=== PATIENT | female | born 1990 | race African-American/Black ===

== ENCOUNTER 2020-08-04 20:27 | Emergency (ER) | payer SELFPAY ==
[~2020-08-04] VITALS: Ht 154.9 cm; Wt 84.0 kg
[~2020-08-04 20:27] MED LIST: HYDR-3164 PO; PRED50TA PO
[2020-08-04] MEDS ORDERED: SULF1TAB24 PO (21:22)
--- NOTE | 2020-08-04 21:22 | PHYS DOC ---
Past Medical History Past Medical History: Glaucoma Additional Past Medical Histor: genital herpes Past Surgical History: Cholecystectomy Additional Past Surgical Histo: R Ovarian cyst removal. Smoking Status: Never Smoker Alcohol Use: None Drug Use: None General Adult EDM: Chief Complaint: INSECT BITE HPI: HPI: Patient is a 30 year old female who presents with right cheekbone quarter sized tender read slightly elevated, hard abscess x 2 days. Denies drainage, fever, dizziness, headache, nausea, vomiting, chills, abdominal pain. Rates her pain a 8/10 and more so with palpation. Past medical history cholecystectomy and genital herpes. Takes no medications daily. Review of Systems: Review of Systems: Constitutional: Denies fever or chills. [] Eyes: Denies change in visual acuity. [] HENT: Denies nasal congestion or sore throat. [] Respiratory: Denies cough or shortness of breath. [] Cardiovascular: Denies chest pain or edema. [] GI: Denies abdominal pain, nausea, vomiting, bloody stools or diarrhea. [] : Denies dysuria. [] Musculoskeletal: Denies back pain or joint pain. +Right facial pain. [] Integument: Denies rash. +Right cheekbone abscess. [] Neurologic: Denies headache, focal weakness or sensory changes. [] Endocrine: Denies polyuria or polydipsia. [] Lymphatic: Denies swollen glands. [] Psychiatric: Denies depression or anxiety. [] Heart Score: Risk Factors: Risk Factors: DM, Current or recent (<one month) smoker, HTN, HLP, family history of CAD, obesity. Risk Scores: Score 0 - 3: 2.5% MACE over next 6 weeks - Discharge Home Score 4 - 6: 20.3% MACE over next 6 weeks - Admit for Clinical Observation Score 7 - 10: 72.7% MACE over next 6 weeks - Early Invasive Strategies Allergies: Allergies: Allergies Coded Allergies Type Severity Reaction Last Updated Verified No Known Drug Allergies 03/18/16 No Physical Exam: PE: Constitutional: Well developed, well nourished, no acute distress, non-toxic appearance. [] HENT: Normocephalic, atraumatic, bilateral external ears normal, oropharynx moist, no oral exudates, nose normal. [] Eyes: PERRLA, EOMI, conjunctiva normal, no discharge. [] Neck: Normal range of motion, no tenderness, supple, no stridor. [] Cardiovascular:Heart rate regular rhythm, no murmur [] Lungs & Thorax: Bilateral breath sounds clear to auscultation [] Abdomen: Bowel sounds normal, soft, no tenderness, no masses, no pulsatile masses. [] Skin: Warm, dry, no erythema, no rash. Right cheekbone quarter sized abscess with redness. No drainage. [] Back: No tenderness, no CVA tenderness. [] Extremities: No tenderness, no cyanosis, no clubbing, ROM intact, no edema. [] Neurologic: Alert and oriented X 3, normal motor function, normal sensory function, no focal deficits noted. [] Psychologic: Affect normal, judgement normal, mood normal. [] Current Patient Data: Vital Signs: Vital Signs Date Time Temp Pulse Resp B/P (MAP) Pulse Ox O2 Delivery O2 Flow Rate FiO2 08/04/20 20:30 98.4 92 18 119/65 (83) 96 Room Air 98.4 EKG: EKG: [] Radiology/Procedures: Radiology/Procedures: [] Course & Med Decision Making: Course & Med Decision Making Pertinent Labs and Imaging studies reviewed. (See chart for details) See HPI. Alert and oriented x4. Speaks in full clear sentences. Ambulatory with a steady gait. No other swelling to the face. Patient will be sent home on Bactrim antibiotic and she will follow-up with her primary care physician. [] Lisandro Disclaimer: Lisandro Disclaimer: This electronic medical record was generated, in whole or in part, using a voice recognition dictation system. Departure Departure Impression: Primary Impression: Abscess Disposition: 01 DC HOME SELF CARE/HOMELESS Condition: STABLE Referrals: NO PCP (PCP) Patient Instructions: Abscess Additional Instructions: Take medication as prescribed with food. Take ibuprofen for pain. Use warm compresses. Follow-up with primary care physician. Scripts Sulfamethoxazole/Trimethoprim (BACTRIM DS TABLET) 1 Each Tablet 1 TAB PO BID for 10 Days, #20 TAB 0 Refills Prov: SANDRA WEIR APRN 08/04/20 SANDRA WEIR APRN Aug 04, 2020 21:22
[2020-08-04 21:39] VITALS: BP 118/55
== END 2020-08-04 21:39 | disposition home or self-care (01) ==
LOC: ER 20:27
DX: L02.01 Cutaneous abscess of face (principal)
CPT/HCPCS: 99283